=== PATIENT | male | born 1975 | race Hispanic/Latino ===

== ENCOUNTER 2022-11-03 16:01 | Outpatient (CLI) | payer OTHER, SELFPAY ==
--- NOTE | ~2022-11-03 | CT_ITS ---
EXAMINATION: CTA chest PE protocol DATE: 11/03/2022 16:41 INDICATION: CHEST PAIN, UNSPEC;PER HX OF PE TECHNIQUE: Computed tomography angiography (CTA) of the chest was performed with 100 mL Omnipaque-350 intravenous contrast timed to evaluate the pulmonary arteries. Coronal maximum intensity projection 3D-reconstructions were created by the technologist. The dose-length product (DLP) was 377.47 mGy-cm. Automated exposure control and iterative reconstruction technique were employed. COMPARISON: None. FINDINGS: Lung parenchyma and airways: Dependent atelectasis, otherwise clear. Pleura: Unremarkable. Thoracic inlet, axillae and chest wall: Unremarkable. Thoracic aorta: Normal. Mediastinum: Normal. Heart and pericardium: Normal. Coronary artery calcifications: Absent. Upper abdomen: Steatosis. Bones: No acute osseous finding. Pulmonary arteries: Study quality: Adequate. No pulmonary emboli detected. IMPRESSION: No CT evidence of acute pulmonary embolus. Reviewed, dictated and finalized at location K. ITURE REFINISHER
[2022-11-03 17:40] LABS: Basophils Absolute Auto 0.1 K/mm3 (0.0-0.1); Basophils Percent Auto 0.6 % (0.2-1.2); Eosinophils Absolute Auto 0.6 K/mm3 (0-0.3); Eosinophils Percent Auto 6.6 % (0-4.4); Hematocrit 43.8 % (42.0-52.0); Hemoglobin 15.1 g/dL (14.0-18.0); Immature Granulocyte Absolute 0.02 K/mm3 (0.00-0.031); Immature Granulocyte Percent A 0.2 % (0-0.5); Lymphocytes Absolute Auto 3.23 K/mm3 (0.9-3.2); Lymphocytes Percent Auto 34.9 % (18.3-44.2); Mean Corpuscular HGB Conc 34.5 g/dl (32-36); Mean Corpuscular Hemoglobin 30.4 pg (26-34); Mean Corpuscular Volume 88.1 fl (80-100); Monocytes Absolute Auto 0.7 K/mm3 (0.1-0.6); Neutrophils Absolute Auto 4.6 K/mm3 (1.3-6.7); Neutrophils Percent Auto 49.7 % (45.5-73.1); Platelet Count Result 385 k/mm3 (150-375); Red Blood Count 4.97 M/mm3 (4.6-6.20); Red Cell Distribution Width 12.4 % (11.5-14.5); White Blood Count 9.3 K/mm3 (4.5-10.0)
[2022-11-03 17:47] LABS: Alanine Aminotransferase 44 U/L (6-50); Albumin Level 4.3 g/dL (3.5-5.1); Alkaline Phosphatase 72 U/L (38-126); Anion Gap 5 mmol/L (8-16); Aspartate Amino Transferase 27 U/L (17-59); Bilirubin,Total 0.5 mg/dL (0.2-1.3); Blood Urea Nitrogen 16 mg/dL (9-20); CRP < 0.5 mg/dL (<1.0); Calcium 8.7 mg/dL (8.4-10.2); Carbon Dioxide 31 mmol/L (22-30); Chloride 101 mmol/L (98-107); Cholesterol 162 mg/dL (0-200); Estimated Glomerular Filt Rate > 60; Glucose 83 mg/dL (65-110); HDL Direct 37 mg/dL; Phosphorus 5.3 mg/dL (2.5-4.5); Potassium 3.8 mmol/L (3.4-5.0); Sodium 137 mmol/L (137-145); Triglycerides 187 mg/dL (<150)
[2022-11-03 17:47] LABS: Appearance Urine Clear (Clear); Bilirubin Urine Negative (Negative); Blood Urine Trace-intact (Negative); Color Urine Yellow (Yellow); Glucose Urine UA Negative (Negative); Ketones Urine Negative (Negative); Leukocyte Esterase Ur Negative LEU/UL (Negative); Nitrate Urine Negative (Negative); Protein Urine Negative (Negative); Urobilinogen Urine 0.2 mg/dL (<2.0)
[2022-11-03 17:55] LABS: Troponin I < 0.012 ng/mL (0.000-0.034)
[2022-11-03 17:56] LABS: LDL Cholesterol Direct 88 mg/dL
[2022-11-03 17:57] LABS: Mucus Urine Rare /lpf; WBC Urine 0-3 /hpf
[2022-11-03 17:58] LABS: Add Urine Microscopic? YES
[2022-11-03 18:14] LABS: Thyroid Stimulating Hormone 0.712 uIU/mL (0.465-4.680)
[2022-11-03 18:17] LABS: Erythrocyte Sedimentation Rate 8 mm/hr (0-20)
[2022-11-03 18:30] LABS: D Dimer < 0.27 ug/mL (<0.48)
[2022-11-03 18:40] LABS: Free T4 Free Thyroxine 1.44 ng/mL (0.78-2.19); Vitamin D 25 Hydroxy 25.1 ng/mL
== END 2022-11-03 16:02 | disposition home or self-care (01) ==
PROVIDERS: PCP Internal Medicine; Visit Provider Nurse Practitioner
DX: R07.9 Chest pain, unspecified (principal); R42 Dizziness and giddiness; D72.828 Other elevated white blood cell count; F41.1 Generalized anxiety disorder; R51.9 Headache, unspecified; E55.9 Vitamin D deficiency, unspecified; M25.511 Pain in right shoulder; Z90.89 Acquired absence of other organs; Z86.711 Personal history of pulmonary embolism
CPT/HCPCS: 36415; 71275; 80053; 80061; 80069; 81001; 82306; 84439; 84443; 84484; 85025; 85380; 85652; 86140; Q9967

== ENCOUNTER 2025-05-04 19:31 | Emergency (ER) | payer OTHER, SELFPAY ==
--- NOTE | ~2025-05-04 | CT_ITS ---
EXAMINATION: CT brain wo con DATE: 05/04/2025 21:37 INDICATION: Left-sided headache for 2 weeks TECHNIQUE: Computed tomography (CT) of the head was performed without intravenous contrast. The dose- length product was 681.00 mGy-cm. Automated exposure control and iterative reconstruction technique w ere employed. COMPARISON: CT dated 03/25/2019 FINDINGS: Brain parenchymal volume is normal for age. No acute intracranial hemorrhage, infarction, m ass or mass effect. No ventriculomegaly or midline shift. Basilar cisterns are patent. There is mucos al thickening of the maxillary, ethmoid, sphenoid and frontal sinuses. Mastoids are pneumatized. No d epressed skull fractures. IMPRESSION: 1. No acute intracranial abnormality. Reviewed, dictated and finalized at location B.
--- OUTSIDE RECORDS SUMMARY | 2025-05-04 19:34 | XMS_ITS | Clinical Summary ---
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 Gender Identity Not on file Sexual Orientation Not on file Plan of Treatment Health Maintenance Due Date Last Done Comments Colorectal Cancer Screening Colonoscopy (10 Years) 1976 Annual Physical 1979 Hepatitis C 1994 DTaP, Tdap and Td Vaccines ( 1 - Tdap) 1995 Hepatitis B Vaccines (1 of 3 - 19+ 3-dose series) 1995 COVID-19 Vaccine (2023-2 5 season) 2024 01/14/2021, 12/24/2020 Meningococcal B Vaccine Aged Out No l onger eligible based on patient's age to complete this topic Meningococcal Vaccine Aged Out No maria elena raulito eligible based on patient's age to complete this topic Pneumococcal Vaccine: Pediatrics (0 to 5 Years) and At-Risk Patients (6 to 49 Years) Aged Out No longer eligible b ased on patient's age to complete this topic RSV Immunizations Under 20 Months Aged Out No longer eligible b ased on patient's age to complete this topic Insurance [facility]ETNA [facility] Care Teams Seaming Inspector Relationship Specialty Start Date End Date None, Provider, MD PCP - General UNKNOWN PHYSICIAN SPECIALTY 10/14/24
--- OUTSIDE RECORDS SUMMARY | 2025-05-04 19:34 | XMS_ITS | Clinical Summary ---
Author Organization [email or web address] Address [address] [place] [address] Care Team Providers Care Resident Surgeon Name Role Phone Unavailable Primary Care Provider Unavailabl e Source Comments [email or web address],non-owned Affiliates and Associated Physician Practices is amultiple site organization consisting of ambulatory clinics and hospital sitesin [place], [place], [place] and [place]. This disclosure is being madepursuant to the Care Everywhere program and may not contain all information available regarding this patient. Last updated 18.[email or web address] Allergies No known active allergies Medications * Be aware that medications may not be up to date on this document. Alwaysverify current medications with the patient. No known medications Social History Tobacco Use Types Packs/Day Years Used Date Smoking Tobacco: Never Smokeless Tobacco: Never Sex and Gender Information Value Date Recorded Sex Assigned at Not on file Legal Sex Male 3:42 PM CDT Gender Identity Not on file Sexual Orientation Not on file Last Filed Vital Signs Vital Sign Reading Time Taken Comments Blood Pressure 122/66 02/23/2018 4:03 PM CDT Pulse 76 02/23/2018 4:03 PM CDT Temperature 37.2 C (98.9 F) 02/23/2018 4:03 PM CDT Respiratory Rate 16 02/23/2018 4:03 PM CDT Oxygen Saturation 98% 02/23/2018 4:03 PM CDT Inhaled Oxygen Concentration - - Weight 86.2 kg (190 lb) 02/23/2018 4:03 PM CDT Height 167.6 cm (5' 6) 02/23/2018 4:03 PM CDT Body Mass Index 30.67 02/23/2018 4:03 PM CDT Plan of Treatment Health Maintenance Due Date Last Done Comments COLOGUARD (AGES 45-75) - COL ON CA SCREENING 1976 COLON MONITORING 1976 COLONOSCOPY - COLON CA SCREENING 1976 CT COLONOGRAPHY - COLON CA SCREENING 1976 Colorectal Cancer Screening 1976 FIT - COLON CA SCREENING 1976 FLEX SIG - COLON CA SCREENING 1976 LIPID TESTING 1976 HIV SCREENING 1991 HEPATITIS C SCREENING 06/07/1994 DTAP/TDAP/TD VACCINES (1 - Tdap) 1995 HEPATITIS B VACCINE (1 of 3 - 19+ 3-dose series) 1995 SCREENING FOR DIABETES 02/23/2018 COVID-19 VACCINE (1 - 2023-2 5 season) 2024 DEPRESSION SCREENING 10/05/2024 INFLUENZA VACCINE (#1) 2025 ZOSTER VACCINE (1 of 2) 2026 HIB VACCINE Aged Out No longer eligi ble based on patient's age to complete this topic HPV VACCINE Aged Out No longer eligi ble based on patient's age to complete this topic MENINGOCOCCAL (Group B) VACC INE SHARED DECISION-MAKING Aged Out No longer eligibl e based on patient's age to complete this topic MENINGOCOCCAL GROUPS A/C/Y/W VACCINE Aged Out No longer eligible b ased on patient's age to complete this topic PNEUMOCOCCAL VACCINE Aged Out No long er eligible based on patient's age to complete this topic Insurance
[2025-05-04 19:38] VITALS: BP 150/81; PULSE 73; RESP 20; TEMP 36.9; O2SAT 98
[2025-05-04 20:20] VITALS: BP 159/99; PULSE 69; RESP 14; TEMP 36.4; O2SAT 96
--- OUTSIDE RECORDS SUMMARY | 2025-05-04 20:41 | XMS_ITS | Clinical Summary ---
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 Care Teams Boat Outboard Engine Mechanic Relationship Specialty Start Date End Date None, Provider, MD PCP - General UNKNOWN PHYSICIAN SPECIALTY 10/14/24
--- OUTSIDE RECORDS SUMMARY | 2025-05-04 20:41 | XMS_ITS | Clinical Summary ---
Author Organization [facility] Address [address] [place] [address] Care Team Providers Care Technical Maintenance Technician Name Role Phone Unavailable Primary Care Provider Unavailabl e Source Comments [facility],non-owned Affiliates and Associated Physician Practices is amultiple site organization consisting of ambulatory clinics and hospital sitesin [place], [place], [place] and [place]. This disclosure is being madepursuant to the Care Everywhere program and may not contain all information available regarding this patient. Last updated 18.[facility] Allergies No known active allergies Medications * [...]
[2025-05-04] MEDS: ACETAMINOPHEN 500 MG TABLET 1000 MG PO (21:12)
[2025-05-04] MEDS: METOCLOPRAMIDE HCL INJ 10 MG/2 ML VIAL IV PUSH (21:12)
--- NOTE | 2025-05-04 21:12 | ED_ITS ---
HPI - Headache General Chief Complaint: Headache Stated Complaint: head pain left side for 2 weeks Time Seen by Provider: 05/04/25 20:24 Source: patient Mode of arrival: ambulatory Limitations: no limitations History of Present Illness HPI Narrative: Patient is a 49-year-old male who presents the ED with report of a headache. Patient reports having a persistent left-sided headache for past 2 weeks. States pain waxes and wanes, but has been fairly consistent. Pain worse with some head movements. He has been taking Tylenol and ibuprofen which will improve pain slightly. He denies history of frequent headaches or migraines. Reports phonophobia, denies significant photophobia. Denies nausea, vomiting, vision changes, dizziness, lightheadedness, syncope, focal numbness or weakness. Related Data Allergies Allergy/AdvReac Type Severity Reaction Status Date / Time No Known Allergies Allergy Unverified 05/04/25 19:40 Review of Systems Review of Systems: All systems reviewed & are unremarkable except as noted in HPI. All systems reviewed & are unremarkable except as noted in HPI and below Exam Narrative: GENERAL: Well appearing, well-nourished, non-toxic, in no acute distress. HEAD: Normocephalic, atraumatic. EYES: PERRL/EOMI, conjunctiva clear, no nystagmus NECK: No meningeal signs. Normal ROM RESPIRATORY: Airway patent, respirations nonlabored. Clear to auscultation bilaterally, no rales, rhonchi, wheezing. CARDIOVASCULAR: Regular rate and rhythm without murmurs, rubs, or gallops. MUSCULOSKELETAL: Moves all extremities. No gross deformities. SKIN: Warm, dry, normal color. NEURO: A&O X3. Speech clear. Cranial nerves II-XII grossly intact. Steady gait. No ataxic movements. No focal deficits. PSYCHIATRIC: Appropriate mood and affect. Normal interaction. Course Vital Signs Vital signs: Vital Signs Temperature 98.5 F 05/04/25 19:38 Pulse Rate 73 05/04/25 19:38 Respiratory Rate 20 05/04/25 19:38 Blood Pressure 150/81 H 05/04/25 19:38 Pulse Oximetry 98 05/04/25 19:38 Oxygen Delivery Room Air 05/04/25 19:38 Temperature 97.5 F L 05/04/25 20:20 Pulse Rate 71 05/04/25 23:05 Respiratory Rate 18 05/04/25 23:05 Blood Pressure 147/81 H 05/04/25 23:05 Pulse Oximetry 98 05/04/25 23:05 Oxygen Delivery Room Air 05/04/25 19:38 MDM - Headache MDM Narrative Medical decision making narrative: Patient's headache was not sudden in onset or maximal in severity. There are no focal neurological deficits on exam. Subarachnoid hemorrhage is felt to be unlikely at this time. CT brain was obtained without acute findings. There is no history of fever and neck is supple on evaluation without meningeal signs. Meningitis is felt to be unlikely. No traumatic history or signs of trauma on evaluation. No vision changes or ocular signs of acute glaucoma. Patient feeling much better after migraine cocktail. Resting very comfortably on re-evaluation. Patient's headache is felt to be benign cephalgia and reasonable for further outpatient management. Advised patient to follow with PCP for further evaluation. Given reasons to return. Discussed further headache management at home. Discharged in stable condition. Medical Records Attestation: I reviewed the patient's medical records. Imaging Data Attestation: I personally reviewed and interpreted this imaging study as follows: Radiologist's impression: STAT RAD CT brain: No acute intracranial hemorrhage. No midline shift or mass effect. The territory lawrence-white matter differentiation is maintained throughout. The ventricles and sulci are commensurate with age. Discharge Plan Discharge Clinical Impression: Headache Qualifiers: Headache type: unspecified Headache chronicity pattern: acute headache Intractability: not intractable Qualified Code(s): R51.9 - Headache, unspecified Patient Disposition: Home Condition: Stable Instructions: Antibiotic Form, Migraine Headache (ED), Acute Headache (ED) Additional Instructions: Continue Tylenol and ibuprofen as needed for pain. Get plenty of rest. Stay well hydrated. Recommend low light/ low stimulus environment, limiting screen time. Follow-up with your primary care doctor for further evaluation if needed. Return to the ED if you experience worsening or severe pain, severe dizziness, vision changes, unable to keep down food or drink, or any other symptoms of concern. Patient Language: Montserratian Follow-up/Referrals: UNKNOWN,DOCTOR [Primary Care Provider] - Time of Disposition: 22:59
[2025-05-04] MEDS: SODIUM CHLORIDE 0.9% IV 1,000 ML 999 ML IV CONT (21:13)
[2025-05-04 21:18] VITALS: BP 153/92; PULSE 68; RESP 17; O2SAT 96
[2025-05-04 23:05] VITALS: BP 147/81; PULSE 71; RESP 18; O2SAT 98
== END 2025-05-04 23:05 | disposition home or self-care (01) ==
PROVIDERS: Emergency Provider Physician Assistant
DX: R51.9 Headache, unspecified (principal)
CPT/HCPCS: 70450; 96361; 96374; 96375; 99284; A9270; J1200; J2765; J7030